=== PATIENT | male | born 1995 | race Caucasian/White ===

== ENCOUNTER 2021-09-21 17:50 | Emergency (ER) | payer OTHER ==
[~2021-09-21] VITALS: Ht 167.6 cm; Wt 96.7 kg
[2021-09-21 18:03] VITALS: BP 142/76
--- NOTE | 2021-09-21 19:19 | NUR ---
PATIENT CALL TO BED , NO RESPONSE. PATIENT LEFT WITHOUT BEING SEEN BY DR. WILLETT. NO FURTHER CARE PROVIDED FOR PATIENT.
--- NOTE | 2021-09-21 19:25 | NUR ---
CALLED FOR THE SECOND TIME, NO RESPONSE
--- NOTE | 2021-09-21 19:31 | NUR ---
CALLED FOR THE THIRD TIME, PATIENT PUT IN NADINE.
--- NOTE | 2021-09-21 21:08 | NUR ---
Patient ambulated to bed 12
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
[2021-09-21] MEDS ORDERED: BACITRACIN OINT 500 UNITS/GM PKT TP ONE (21:35)
[2021-09-21] MEDS ORDERED: LIDOCAINE 2% 1000 MG/50 ML VIAL INJ ONE (21:35)
--- NOTE | 2021-09-21 22:37 | NUR ---
PER ERMD, PT R THUMB DRESSED WITH NON ADHERENT AND DORSAL SPLINT PLACED ON R THUMB. + CMS AFTER APPLICATION
--- NOTE | 2021-09-21 22:48 | NUR ---
Patient discharged with v/s stable. Written and verbal after care instructions given and explained. Patient verbalized understanding. Ambulatory with steady gait. All questions addressed prior to discharge. Advised to follow up with PMD.
== END 2021-09-21 22:48 | disposition home or self-care (01) ==
LOC: MED 17:50
DX: S61.011A Laceration without foreign body of right thumb without damage to nail, initial encounter (principal); W26.0XXA Contact with knife, initial encounter; Y93.89 Activity, other specified; Y92.89 Other specified places as the place of occurrence of the external cause; Y99.8 Other external cause status
CPT/HCPCS: 12001; 99282; J2001

== ENCOUNTER 2022-07-09 17:52 | Emergency (ER) | payer OTHER ==
[~2022-07-09] VITALS: Ht 168.9 cm; Wt 97.1 kg
[2022-07-09 18:04] VITALS: BP 123/71
--- NOTE | 2022-07-09 18:09 | NUR ---
PT TO LOBBY
--- NOTE | 2022-07-09 19:04 | NUR ---
PA RYAN examining patient.
[2022-07-09] MEDS ORDERED: LIDOCAINE MPF 1% 10 MG/ML VIAL INJ ONE (19:15)
--- NOTE | 2022-07-09 19:18 | NUR ---
Patient taken to bed 7.
--- NOTE | 2022-07-09 19:27 | NUR ---
PA RYAN at bedside and started procedure.
--- NOTE | 2022-07-09 19:27 | NUR ---
Patient has a 1 cm laceration to forehead. PA RYAN applied sutures using sterile technique. Edges well approximated. Site cleansed with NSS. No bleeding noted. Pt tolerated well.
[2022-07-09] MEDS ORDERED: IBUPROFEN 600 MG TAB PO ONE (19:35)
[2022-07-09 19:57] VITALS: BP 122/71
== END 2022-07-09 19:57 | disposition home or self-care (01) ==
LOC: MED 17:52
DX: S01.81XA Laceration without foreign body of other part of head, initial encounter (principal); X58.XXXA Exposure to other specified factors, initial encounter; Y92.89 Other specified places as the place of occurrence of the external cause; Y93.89 Activity, other specified; Y99.8 Other external cause status
CPT/HCPCS: 12011; 90471; 90715; 99283; J2001